=== PATIENT | female | born 1980 | race Caucasian/White ===

== ENCOUNTER 2021-02-01 23:06 | Emergency (ER) | payer MEDICAID ==
[~2021-02-01 23:06] MED LIST: EPIN0.3P3 IM; HYDR-3965 PO; SERT-153 PO; TRAZ-91 PO
== END 2021-02-02 02:06 | disposition left against medical advice (07) ==
LOC: ER 23:08
DX: R50.9 Fever, unspecified (principal); Z53.21 Procedure and treatment not carried out due to patient leaving prior to being seen by health care provider